=== PATIENT | female | born 1960 | race African-American/Black ===

== ENCOUNTER 2017-04-06 08:18 | Emergency (ER) | payer BC, SELFPAY ==
[2017-04-06 09:21] LABS: Hemoglobin 13.3 g/dL (12.0-16.0); Mean Corpuscular HGB CONC 32.3 g/dL (32.0-36.0); Mean Corpuscular Hemoglobin 30.4 pg (27.0-31.0); Mean Corpuscular Volume 94.1 fl (81.0-99.0); Mean Platelet Volume 7.9 fL (7.4-10.4); Platelet Count 327 thou/uL (130-400); RBC Distribution Width 12.4 % (11.5-14.5); Red Blood Cell (RBC) Count 4.38 mill/uL (4.20-5.40); White Blood Cell (WBC) Count 5.7 thou/uL (4.8-10.8)
[2017-04-06 09:36] LABS: Band 2 % (5-11); Eosinophils 8 % (0-10); Lymphocytes 41 % (21-51); MDiff Complete? YES; Monocytes 2 % (0-10); Neutrophil 47 % (42-75); RBC Morphology Normal
[2017-04-06 09:44] LABS: ALT (SGPT) 39 U/L (8-55); AST (SGOT) 31 U/L (5-34); Albumin 4.2 g/dL (3.5-5.0); Alkaline Phosphatase 186 U/L (40-150); Anion Gap 10 mmol/L (10-20); BUN (Urea Nitrogen) 16 mg/dL (9.8-20.1); Bilirubin, Total 0.5 mg/dL (0.2-1.2); Calc. Creatinine Clearance 0 mL/min (70-130); Calcium 9.8 mg/dL (7.8-10.44); Carbon Dioxide 28 mmol/L (22-29); Chloride 105 mmol/L (98-107); Estimated GFR-MDRD 77; Globulin 4.1 g/dL (2.4-3.5); Glucose 116 mg/dL (70-105); Potassium 4.3 mmol/L (3.5-5.1); Protein, Total 8.3 g/dL (6.0-8.3); Sodium 139 mmol/L (136-145)
[2017-04-06 09:50] LABS: CKMB 0.7 ng/mL (0-6.6); Troponin I Less than 0.010 ng/mL (< 0.028)
[2017-04-06] MEDS ORDERED: Ketorolac Tromethamine 30 MG/ML VIAL ONE (10:24)
[2017-04-06] MEDS ORDERED: Losartan 25 MG TAB PO SCH (10:30)
--- NOTE | 2017-04-10 15:33 | EKG ---
Test Reason : ER INDICATION Blood Pressure : / mmHG Vent. Rate : 067 BPM Atrial Rate : 067 BPM P-R Int : 168 ms QRS Dur : 080 ms QT Int : 432 ms P-R-T Axes : 015 -10 -07 degrees QTc Int : 456 ms Normal sinus rhythm Moderate voltage criteria for LVH, may be normal variant Borderline ECG Confirmed by ALEXEI MINOR ([id number]), telegraph editor TERRENCE DANGELO ([id number]) on 04/10/2017 3:33:18 PM Referred By: Confirmed By:ALEXEI MINOR
== END 2017-04-06 15:50 | disposition home or self-care (01) ==
LOC: ERS 08:18
DX: M62.838 Other muscle spasm (principal); E11.9 Type 2 diabetes mellitus without complications; E78.5 Hyperlipidemia, unspecified; I10 Essential (primary) hypertension; K21.9 Gastro-esophageal reflux disease without esophagitis; Z79.84 Long term (current) use of oral hypoglycemic drugs
CPT/HCPCS: 80053; 82553; 84484; 85025; 93005; 96374; 96375; J1885; J2270

== ENCOUNTER 2018-02-25 09:39 | Emergency (ER) | payer SELFPAY | END 2018-02-25 10:45 | disposition home or self-care (01) | LOC: ERS 09:39 | DX: J30.2 Other seasonal allergic rhinitis (principal); E11.9 Type 2 diabetes mellitus without complications; E78.5 Hyperlipidemia, unspecified; I10 Essential (primary) hypertension; K21.9 Gastro-esophageal reflux disease without esophagitis | CPT/HCPCS: 99283 ==

== ENCOUNTER 2019-04-28 16:21 | Emergency (ER) | payer BC, SELFPAY | END 2019-04-28 16:35 | disposition home or self-care (01) | LOC: ERS 16:21 | DX: H66.92 Otitis media, unspecified, left ear (principal); E11.9 Type 2 diabetes mellitus without complications; E78.5 Hyperlipidemia, unspecified; E78.00 Pure hypercholesterolemia, unspecified; I10 Essential (primary) hypertension; K21.9 Gastro-esophageal reflux disease without esophagitis | CPT/HCPCS: 99282 ==

== ENCOUNTER 2019-08-22 08:15 | Outpatient (CLI) | payer OTHER ==
--- NOTE | 2019-08-22 08:33 | RAD ---
EXAM: 3 views of the right ankle HISTORY: Ankle pain COMPARISON: None FINDINGS: 3 views of the right ankle shows no evidence of acute fracture or dislocation. Mild lateral soft tissue swelling is seen. No degenerative changes are present. IMPRESSION: No evidence of acute osseous abnormality.
== END 2019-08-22 08:16 | disposition home or self-care (01) ==
LOC: BICRAD 08:15
PROVIDERS: ATTEND Obstetrics & Gynecology
DX: M25.571 Pain in right ankle and joints of right foot (principal); G89.29 Other chronic pain

== ENCOUNTER 2019-10-25 13:31 | Outpatient (CLI) | payer OTHER ==
--- NOTE | 2019-10-25 15:52 | MRI ---
MRI RIGHT SHOULDER WITHOUT CONTRAST: HISTORY: Tear of right rotator cuff. COMPARISON: Radiograph of 10/13/2019 for reference. FINDINGS: Biceps tendon: Mildly increased extraarticular biceps tendon synovial fluid. Mild intraarticular tendinosis. Labrum: Tear throughout the superior labrum anterior-posterior from the biceps tendon extending to the intra articular biceps tendon for a length of 3 mm. There is a posterior chondrolabral junctional tear ext ending to the posterior inferior labrum. Rotator cuff: At the critical zone with a 1 cm gap. Mild interstitial tearing at the footprint infraspinatus tendo n. Bones: Prior acromioplasty. Normal glenoid version. No acute fracture. Soft tissues: There is a small joint effusion with mild axillary pouch synovitis. Mild loss of normal subcoracoid fat. Mild pericapsular inflammation. Cartilage: No high-grade chondral defect. IMPRESSION: 1. Relatively high-grade 60-70% undersurface partial tearing throughout the supraspinatus tendon cri tical zone with 1 cm gap. 2. Superior labral tear anterior-posterior to the biceps labral expansionth extending into the proxi mal 3 mm intraarticular tendon. 3. Small joint effusion with axillary pouch edema as well as some mild loss of subcoracoid fat can b e seen with capsulitis in the correct clinical setting. 4. Normal muscle signal and bulk. No atrophy. 5. Posterior chondrolabral junctional tear. POS: [facility]
== END 2019-10-25 13:32 | disposition home or self-care (01) ==
LOC: BICMRI 13:31
PROVIDERS: ATTEND Orthopaedic Surgery
DX: M75.101 Unspecified rotator cuff tear or rupture of right shoulder, not specified as traumatic (principal); S43.401A Unspecified sprain of right shoulder joint, initial encounter; M25.411 Effusion, right shoulder; R60.0 Localized edema

== ENCOUNTER 2020-06-19 08:41 | Emergency (ER) | payer OTHER, SELFPAY ==
[2020-06-19 09:41] LABS: #Eosinphils 0.5 thou/uL (0.0-0.7); #Lymphocytes 3.4 thou/uL (1.20-3.40); #Monocytes 0.6 thou/uL (0.11-0.59); #Neutrophils 2.7 thou/uL (1.40-6.50); %Basophils 0.7 % (0.0-1.0); %Eosinophils 6.8 % (0.0-10.0); %Lymphocytes 47.8 % (21.0-51.0); %Monocytes 7.8 % (0.0-10.0); %Neutrophils 37.1 % (42.0-75.0); Hemoglobin 13.1 g/dL (12.0-16.0); Mean Corpuscular Volume 90.6 fL (78.0-98.0); Mean Platelet Volume 8.5 fL (7.4-10.4); Platelet Count 373 thou/uL (130-400); RBC Distribution Width 12.8 % (11.5-14.5); Red Blood Cell (RBC) Count 4.67 mill/uL (4.20-5.40); White Blood Cell (WBC) Count 7.2 thou/uL (4.8-10.8)
[2020-06-19 10:02] LABS: ALT (SGPT) 22 U/L (8-55); AST (SGOT) 19 U/L (5-34); Albumin 4.1 g/dL (3.5-5.0); Alkaline Phosphatase 189 U/L (40-110); Anion Gap 11 mmol/L (10-20); BUN (Urea Nitrogen) 9 mg/dL (9.8-20.1); Bilirubin, Total 0.4 mg/dL (0.2-1.2); Calc. Creatinine Clearance 0 mL/min (70-130); Calcium 10.1 mg/dL (7.8-10.44); Carbon Dioxide 28 mmol/L (22-29); Chloride 102 mmol/L (98-107); Globulin 4.3 g/dL (2.4-3.5); Glucose 161 mg/dL (70-105); Potassium 4.1 mmol/L (3.5-5.1); Protein, Total 8.4 g/dL (6.0-8.3); Sodium 137 mmol/L (136-145)
[2020-06-19] MEDS ORDERED: Iopamidol-370 76% 500 ML 1 ML ONE (10:12)
[2020-06-19 10:35] LABS: Bilirubin Negative (Negative); Blood, Urine Negative (Negative); Clarity Clear (Clear); Glucose, Urine (Dipstick) 50 mg/dL (Negative); Ketone, Urine Negative (Negative); Leukocyte Negative Leu/uL (Negative); Nitrite Negative (Negative); Protein, Urine (Dipstick) 10 mg/dL (Neg-Trace); Urobilinogen Normal mg/dL (Less than 2); pH, Urine 5.5 (5.0-9.0)
[2020-06-19 10:39] LABS: Pregnancy Test - Urine (BHCG) Negative (Negative); Pregu Control Background? CLEAR/WHITE (CLR/WHITE); Pregu Control Bar Appear? YES (CONTROL BAR)
[2020-06-19] MEDS ORDERED: Ondansetron PF 4 MG/2 ML Vial ONE (11:13)
[2020-06-19] MEDS ORDERED: Morphine 4 MG/ML VIAL ONE ×2 (11:13→13:13)
== END 2020-06-19 14:29 | disposition home or self-care (01) ==
LOC: ERS 08:41
DX: K43.9 Ventral hernia without obstruction or gangrene (principal); E11.9 Type 2 diabetes mellitus without complications; E78.5 Hyperlipidemia, unspecified; E78.00 Pure hypercholesterolemia, unspecified; K21.9 Gastro-esophageal reflux disease without esophagitis; I10 Essential (primary) hypertension
CPT/HCPCS: 36415; 74177; 80053; 81003; 81025; 83690; 85025; 96374; 96375; 96376; J2270; J2405; Q9967

== ENCOUNTER 2020-06-25 14:47 | Outpatient (CLI) | payer SELFPAY ==
[2020-06-25 16:02] LABS: Anion Gap 12 mmol/L (10-20); BUN (Urea Nitrogen) 13 mg/dL (9.8-20.1); Calc. Creatinine Clearance 0 mL/min (70-130); Calcium 9.3 mg/dL (7.8-10.44); Carbon Dioxide 24 mmol/L (22-29); Chloride 106 mmol/L (98-107); Glucose 130 mg/dL (70-105); Potassium 4.2 mmol/L (3.5-5.1); Sodium 138 mmol/L (136-145)
[2020-06-25 16:03] LABS: #Eosinphils 0.3 10x3/uL (0.0-0.5); #Monocytes 0.5 10x3/uL (0.0-1.1); #Neutrophils 2.8 10x3/uL (1.5-8.4); %Basophils 0.6 % (0.0-2.0); %Eosinophils 3.8 % (0.0-6.0); %Lymphocytes 48.8 % (18.0-47.0); %Monocytes 7.4 % (0.0-10.0); %Neutrophils 39.1 % (40.0-75.0); Hemoglobin 12.4 g/dL (12.0-15.5); Mean Corpuscular HGB CONC 31.6 g/dL (32.0-36.0); Mean Corpuscular Hemoglobin 28.2 pg (27.0-33.0); Mean Corpuscular Volume 89.5 fl (81.6-98.3); Mean Platelet Volume 11.1 fl (7.4-10.4); Platelet Count 400 10x3/uL (150-450); RBC Distribution Width 13.5 % (11.5-14.5); Red Blood Cell (RBC) Count 4.39 10x6/uL (3.90-5.03); White Blood Cell (WBC) Count 7.2 10x3/uL (3.5-10.5)
[2020-06-26 01:14] LABS: SARS-CoV-2 PCR by NAA Not Detected (NotDetected)
== END 2020-06-25 14:48 | disposition home or self-care (01) ==
LOC: LABBT 14:47
PROVIDERS: ATTEND Surgery
DX: Z01.818 Encounter for other preprocedural examination (principal); K43.9 Ventral hernia without obstruction or gangrene; Z20.822 Contact with and (suspected) exposure to COVID-19
CPT/HCPCS: 80048; 85025; 87635; 93005; 93010; U0003; U0005

== ENCOUNTER 2020-06-28 09:05 | Day surgery (SDC) | payer OTHER ==
[2020-06-27 13:08] VITALS: BMI 38.0
[2020-06-28] MEDS ORDERED: Fentanyl 100 MCG/2 ML VIAL ONE ×3 (10:00→12:51)
[2020-06-28] MEDS ORDERED: SUGAMMADEX SODIUM 200 MG/2 ML VIAL ONE (10:00)
[2020-06-28] MEDS ORDERED: Phenylephrine 10 MG/ML VIAL ONE (10:01)
[2020-06-28] MEDS ORDERED: PHENYLEPHRINE-NS 100 MCG/ML 10 ML SYRINGE ONE (10:01)
[2020-06-28] MEDS ORDERED: Bupivacaine 0.25% HCL 30 ML VIAL ONE (10:02)
[2020-06-28] MEDS ORDERED: Lidocaine 1% w/Epinephrine 1:100K 20 ML VIAL ONE (10:02)
[2020-06-28] MEDS ORDERED: Lidocaine 1% PF 5 ML VIAL ONE (11:19)
[2020-06-28] MEDS ORDERED: Ondansetron PF 4 MG/2 ML Vial ONE (11:19)
[2020-06-28] MEDS ORDERED: Ketorolac Tromethamine 30 MG/ML VIAL ONE (11:19)
[2020-06-28] MEDS ORDERED: Rocuronium Bromide 10 MG/ML (10ML VIAL) ONE (11:19)
[2020-06-28] MEDS ORDERED: Dexamethasone 20 MG/5 ML VIAL ONE (11:19)
[2020-06-28] MEDS ORDERED: PROPOFOL 200 MG/20 ML VIAL ONE (11:19)
[2020-06-28] MEDS ORDERED: Promethazine HCl 25 MG/ML VIAL SLOW IVP PRN (11:49)
[2020-06-28] MEDS ORDERED: Ondansetron HCl/PF 4 MG/2 ML Vial IVP PRN (11:49)
[2020-06-28] MEDS ORDERED: HYDROmorphone 2 MG/ML VIAL SLOW IVP PRN (11:49)
[2020-06-28] MEDS ORDERED: HYDROmorphone 0.5 MG/0.5 ML SYRINGE ONE ×3 (12:44→13:04)
[2020-06-28] MEDS ORDERED: Promethazine HCl 25 MG/ML VIAL ONE (13:06)
[2020-06-28] MEDS ORDERED: HYDROcodone/Acetaminophen 5/325 mg Tablet ONE (15:51)
== END 2020-06-28 16:35 | disposition home or self-care (01) ==
LOC: SDC 09:05
PROVIDERS: ATTEND Surgery
PROC: 0WQF4ZZ Repair Abdominal Wall, Percutaneous Endoscopic Approach (ICD-10-PCS; principal; 2020-06-28)
DX: K43.6 Other and unspecified ventral hernia with obstruction, without gangrene (principal); I10 Essential (primary) hypertension; E11.9 Type 2 diabetes mellitus without complications; E78.00 Pure hypercholesterolemia, unspecified; Z79.84 Long term (current) use of oral hypoglycemic drugs; Z79.899 Other long term (current) drug therapy; Z87.891 Personal history of nicotine dependence; Z88.8 Allergy status to other drugs, medicaments and biological substances
CPT/HCPCS: C1781; J0690; J1100; J1170; J1885; J2370; J2405; J2550; J2704; J3010; S0020